=== PATIENT | female | born 1980 | race Caucasian/White ===

== ENCOUNTER 2021-07-09 19:15 | Emergency (ER) | payer OTHER ==
[~2021-07-09] VITALS: Ht 160 cm; Wt 56.8 kg
[~2021-07-09 19:15] MED LIST: NOCURR
[2021-07-09 23:04] LABS: COVID AG,FIA SOURCE NASOPHARYNGEAL
[2021-07-10 03:36] VITALS: BP 121/60
== END 2021-07-10 04:17 | disposition home or self-care (01) ==
LOC: EMS 19:25
DX: U07.1 COVID-19 (principal); J40 Bronchitis, not specified as acute or chronic; J02.9 Acute pharyngitis, unspecified; R05 Cough
CPT/HCPCS: 71045; 87426; 87430; 99285; U0003; 99284